=== PATIENT | female | born 1955 | race African-American/Black ===

== ENCOUNTER 2018-06-22 14:33 | Emergency (ER) | payer BC ==
[~2018-06-22] VITALS: Ht 160 cm; Wt 86.2 kg
[2018-06-22 14:58] LABS: URINE BILIRUBIN NEGATIVE (Negative); URINE BLOOD TRACE (Negative); URINE CLARITY CLEAR; URINE COLOR YELLOW; URINE GLUCOSE-RANDOM* 3+ (Negative); URINE KETONES NEGATIVE (Negative); URINE LEUKOCYTES-REFLEX TRACE (Negative); URINE PROTEIN (DIPSTICK) NEGATIVE (Negative); URINE SPECIFIC GRAVITY <= 1.005 (1.005-1.035); URINE UROBILINOGEN 0.2 E.U./dl (0.2-1.0)
[2018-06-22 15:09] LABS: URINE NITRITE-REFLEX POSITIVE (Negative)
[2018-06-22 15:10] LABS: CASTS None Seen /LPF (None Seen); CRYSTALS None Seen /LPF (None Seen); SQUAMOUS 4-10 Moderate /LPF (0-3); URINE RBC None Seen /HPF (0-2); URINE WBC-REFLEX 6-15 Few /HPF (0-5)
[2018-06-22] MEDS ORDERED: KEFLEX500 M1 PO (15:53)
[2018-06-22 17:20] VITALS: BP 140/75
== END 2018-06-22 17:00 | disposition home or self-care (01) ==
LOC: ER 14:33
PROVIDERS: Emergency Medicine
DX: N39.0 Urinary tract infection, site not specified (principal)

== ENCOUNTER 2018-06-23 23:57 | Inpatient (IN) | payer OTHER, BC ==
[~2018-06-23] VITALS: Ht 160 cm; Wt 86.2 kg
[~2018-06-23 23:57] MED LIST: KEFLEX500 M1 PO
[2018-06-24 00:13] VITALS: BP 170/83
[2018-06-24 00:20] LABS: URINE BILIRUBIN NEGATIVE (Negative); URINE BLOOD 1+ (Negative); URINE CLARITY CLEAR; URINE COLOR YELLOW; URINE GLUCOSE-RANDOM* 3+ (Negative); URINE KETONES 1+ (Negative); URINE LEUKOCYTES-REFLEX 2+ (Negative); URINE NITRITE-REFLEX NEGATIVE (Negative); URINE PROTEIN (DIPSTICK) 1+ (Negative); URINE SPECIFIC GRAVITY 1.015 (1.005-1.035); URINE UROBILINOGEN 0.2 E.U./dl (0.2-1.0)
[2018-06-24 00:24] LABS: ABSOLUTE NEUTROPHILS 8.4 thou/uL (1.4-8.2); BASOPHILS 0.4 % (0.0-2.0); EOSINOPHILS 0.1 % (0.0-3.0); HEMATOCRIT 37.3 % (37.0-47.0); HEMOGLOBIN 12.9 gm/dL (12.0-15.0); LYMPHOCYTES 16.9 % (24.0-44.0); MCH 30.3 pg (26.0-34.0); MCHC 34.5 g/dL (28.0-37.0); MCV 87.6 fL (80.0-100.0); MONOCYTES 3.3 % (1.0-8.0); PLATELET COUNT 257 thou/uL (150-400); POLYS 79.3 % (36.0-66.0); RBC 4.26 mil/uL (4.20-5.00); RDW 14.7 % (10.5-14.5); WBC 10.6 thou/uL (4.0-11.0)
[2018-06-24 00:30] LABS: ANION GAP 19 mmol/L (7-16); BUN 16 mg/dL (7-18); CALCIUM 9.2 mg/dL (8.5-10.1); CHLORIDE 92 mmol/L (98-107); CO2 20 mmol/L (21-32); CREATININE 1.7 mg/dL (0.6-1.0); GLUCOSE 484 mg/dL (74-106); POTASSIUM 3.4 mmol/L (3.5-5.1); SODIUM 131 mmol/L (136-145)
[2018-06-24 00:30] LABS: CASTS None Seen /LPF (None Seen); CRYSTALS None Seen /LPF (None Seen); MUCUS 0-3 Light strn/LPF (None Seen); SQUAMOUS 4-10 Moderate /LPF (0-3); URINE RBC 3-10 Few /HPF (0-2); URINE WBC-REFLEX 6-15 Few /HPF (0-5); YEAST-REFLEX Present (None Seen)
[2018-06-24 00:39] LABS: ALBUMIN 2.9 g/dL (3.4-5.0); DIRECT BILIRUBIN 0.1 mg/dL (<0.1-0.3); SGOT 23 U/L (15-37); SGPT 27 U/L (30-65); TOTAL BILIRUBIN 0.4 mg/dL (<0.1-1.0); TOTAL PROTEIN 8.7 g/dL (6.4-8.2); TROPONIN-I <0.06 ng/mL (<0.06)
[2018-06-24 02:25] VITALS: BP 113/54
[2018-06-24 02:28] VITALS: BP 110/64
--- NOTE | 2018-06-24 04:04 | NUR ---
PT WAS ADMITTED TO THE UNIT AT APPROX 0235 FORM THE ER IN THE COMPANY OF HER SPOUS.ADMISSION ASSESSMENT,HX AND EDUCATION COMPLETED.PT HAD LOW GRADE TEMP ON ADMIT,MANAGED WITH PO MED.HR STILL IN LOW 100'S,PT STABLE.DENIED PAIN ON ADMIT.PT RESTING ON HER BED AT THIS TIME.CALL LIGHT WITHIN REACH.
[2018-06-24 05:46] LABS: HEMATOCRIT 33.9 % (37.0-47.0); HEMOGLOBIN 11.1 gm/dL (12.0-15.0); MCH 28.9 pg (26.0-34.0); MCHC 32.8 g/dL (28.0-37.0); MCV 88.1 fL (80.0-100.0); RBC 3.84 mil/uL (4.20-5.00); WBC 13.5 thou/uL (4.0-11.0)
[2018-06-24 06:01] LABS: CREATININE 1.4 mg/dL (0.6-1.0); POTASSIUM 3.4 mmol/L (3.5-5.1)
[2018-06-24 08:11] VITALS: BP 109/61
--- NOTE | 2018-06-24 08:25 | NUR ---
ASSESMENT COMPLETED. TACHY OTHERWISE VSS. A/O. DENIES PAIN. NO NOTED SOA AT REST. DENIES NV. LACTATE 1.5 THIS AM. MONITORING LABS. BLOOD SUGAR 311 THIS AM WILL MEDICATE ORDERED. PT RESTING IN BED AT THIS TIME. WILL CONT. TO MONITOR.
--- NOTE | 2018-06-24 08:41 | EKG ---
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: [place] : 1955 Requested By: Stone Simpson Order Number: [id number] MD: Yosi Mendez Measurements Intervals [place] Rate: 150 P: 110 OR: 165 QRS: -22 QRSD: 69 T: -49 QT: 277 QTc: 438 Interpretive Statements Sinus tachycardia Poor R wave progression Nonspecific T wave abnormality No previous ECG available for comparison Electronically Signed On 06-24-2018 8:40:46 GATE WATCHMAN by Yosi Mendez [email or web address] ��������������������������������������������� <ELECTRONICALLY SIGNED> ���������������������������������������� By: Yosi Mendez MD, [facility] ��������������������������������������������� 06/24/18 0840 0011 0011 Yosi Mendez MD, FACC /EPI
--- NOTE | 2018-06-24 14:04 | NUR ---
ASSESSMENT-PT LIVES IN A HOUSE WITH HER . PT INDEPENDENT OF ADLS AND AMBULATION. PT WAS DRIVING PRIOR TO ADMISSION. SPOUSE ABLE TO ASSIST AT HOME. PT DENIES KNOWING PREVIOUSLY THAT BLOOD SUGAR HAS BEEN ELEVATED. AWAITING HGBAIC RESULTS. FOLLOWING TO ASSIST WITH DC PLANNING.
[2018-06-24 19:45] VITALS: BP 131/74
[2018-06-25 00:07] LABS: GLYCOHEMOGLOBIN (HGB A1C) 14.8 % (4.8-5.6)
--- NOTE | 2018-06-25 02:26 | NUR ---
PT AFEBRILE,HR IN THE 90'S.NO SOB NOTED SO FAR.BG STILL ELEVATED AT HS,MANAGED WITH SS INSULIN.IVF STILL INFUSING.PT UP ADLIB TO THE BR,STEADY GAIT.EDUCATION GIVEN FOR DM,PT VOICED UNDERSTANDING STATED THAT SHE WILL NEED ASSISTANCE WITH SUPPLIES.PT RESTING ON HER BED AT THIS TIME.CALL LIGHT WITHIN REACH.
[2018-06-25 04:20] VITALS: BP 146/60
[2018-06-25 07:40] VITALS: BP 130/66
[2018-06-25 10:38] LABS: ABSOLUTE NEUTROPHILS 9.9 thou/uL (1.4-8.2); BASOPHILS 0.5 % (0.0-2.0); EOSINOPHILS 0.1 % (0.0-3.0); HEMATOCRIT 33.3 % (37.0-47.0); LYMPHOCYTES 16.3 % (24.0-44.0); MCH 29.4 pg (26.0-34.0); MCHC 33.1 g/dL (28.0-37.0); MCV 88.9 fL (80.0-100.0); MONOCYTES 6.3 % (1.0-8.0); PLATELET COUNT 261 thou/uL (150-400); POLYS 76.8 % (36.0-66.0); RBC 3.74 mil/uL (4.20-5.00); RDW 15.3 % (10.5-14.5); WBC 12.9 thou/uL (4.0-11.0)
[2018-06-25 10:46] LABS: CREATININE 1.1 mg/dL (0.6-1.0); POTASSIUM 3.5 mmol/L (3.5-5.1)
--- NOTE | 2018-06-25 12:30 | NUR ---
Assumed pt care at 7am.Pt in and out of bed independently.Dangle at bs for breakfast.Good appetite noted.Received call from [facility] [place] supervisor that pt will be transfer to sr suites this afternoon.Pt notified and report off to Daksha lugo.Will continue to monitor.
--- NOTE | 2018-06-25 12:36 | NUR ---
REPORT GIVEN BY NURSE MUNIZ. PATIENT TRANSFERRED FROM ROOM #431 TO #225. SHE HAS BEEN ORIENTED TO ROOM AND SETTLED. PATIENT HAS CALL LIGHT WITHIN REACH.
[2018-06-25 12:41] VITALS: BP 130/73
[2018-06-25 19:18] VITALS: BP 146/71
[2018-06-25] MEDS ORDERED: SINGULAIR 10 MG10 M1 PO (22:58)
[2018-06-25] MEDS ORDERED: CLARITIN10 MG PO (22:59)
--- NOTE | 2018-06-26 05:37 | NUR ---
ASSUMED CARE OF PATIENT AT 1899. VSS. ASSESSMENT COMPLETED AT 2049 AND IS DOCUMENTED. HS FSBS 248, 4U COVERAGE INSULIN GIVEN. PT VOICED CONCERN ABOUT INCREASING CONGESTION D/T SEASONAL ALLERGIES. PT STATED THAT SHE TAKES SINGULAR 10MG ONCE DAILY AND CLARITIN 10MG ONCE DAILY AT HOME. TATUM ALDANA ORDERED BOTH MEDICATIONS TO RESUME TODAY AT 0900. PT HAD LOW-GRADE FEVER OF 99.9, TYLENOL GIVEN WITH LITTLE EFFECT. RIGHT AC PIV PATENT WITH NORMAL SALINE RUNNING AT 125 ML/HR. IV ABT INFUSED WITHOUT COMPLICATION. PT CURRENTLY SLEEPING SOUNDLY IN BED IN NO ACUTE DISTRESS. CALL LIGHT WITHIN REACH. BED LOCKED AND IN LOWEST POSITION. WCTM.
--- NOTE | 2018-06-26 06:01 | NUR ---
THIS NURSE AGREES WITH ASSESSMENT AND NOTES ON THIS PATIENT FROM LAW OFFICE ASSISTANT.
[2018-06-26 07:07] LABS: HEMATOCRIT 31.9 % (37.0-47.0); HEMOGLOBIN 10.8 gm/dL (12.0-15.0); MCH 29.9 pg (26.0-34.0); MCHC 33.7 g/dL (28.0-37.0); MCV 88.5 fL (80.0-100.0); RBC 3.6 mil/uL (4.20-5.00); RDW 15.1 % (10.5-14.5); WBC 10.6 thou/uL (4.0-11.0)
[2018-06-26 07:19] LABS: CALCIUM 8.8 mg/dL (8.5-10.1); CREATININE 0.9 mg/dL (0.6-1.0); POTASSIUM 3.3 mmol/L (3.5-5.1)
[2018-06-26 08:10] VITALS: BP 137/83
--- NOTE | 2018-06-26 08:13 | NUR ---
ASSUMED PT CARE AT 0700. PT AWAKE, ALERT/ORIENTED X4. DENIES PAIN. REPORTS SOME FREQUENCY, URGENCY, AND DRIBBLING WITH URINATION. DENIES PAINFUL URINATION. ASSESSMENT COMPLETED AND IS CHARTED. VSS. IV INFUSING NS AND IS ASYMPTOMATIC. PT IS AFEBRILE. NO NEW CONCERNS. WILL CONTINUE CURRENT CARE.
--- NOTE | 2018-06-26 13:14 | NUR ---
PT DOING WELL THIS SHIFT. NO C/O PAIN. PT UP AND AROUND AD CARLITA IN ROOM. IVF DISCONTINUED. WILL CONTINUE WITH CURRENT CARE.
[2018-06-26 19:46] VITALS: BP 143/87
--- NOTE | 2018-06-27 04:40 | NUR ---
ASSUMED CARE OF PATIENT AT 1900. VSS. ASSESSMENT COMPLETED AT 2129 AND IS DOCUMENTED. NEW ORDER FOR METFORMIN GIVEN. PT AND SPOUSE EDUCATED ABOUT ADVERSE EFFECTS, AND VOICED UNDERSTANDING. HS FSBS: 310. 9 UNITS OF COVERAGE INSULIN GIVEN PER JUN. ABT GIVEN VIA RIGHT AC PIV ORDERED WITHOUT COMPLICATION. PT CURRENTLY SLEEPING SOUNDLY IN BED IN NO ACUTE DISTRESS. CALL LIGHT WITHIN REACH. BED LOCKED AND IN LOWEST POSITION. WCTM.
--- NOTE | 2018-06-27 05:11 | NUR ---
THIS NURSE AGREES WITH ASSESSMENT AND NOTES ON THIS PATIENT FROM CHANGE OVER.
[2018-06-27 07:01] LABS: HEMATOCRIT 31.6 % (37.0-47.0); HEMOGLOBIN 10.8 gm/dL (12.0-15.0); MCH 29.9 pg (26.0-34.0); MCV 87.8 fL (80.0-100.0); RBC 3.6 mil/uL (4.20-5.00); RDW 15.2 % (10.5-14.5); WBC 10.1 thou/uL (4.0-11.0)
[2018-06-27 07:11] LABS: CALCIUM 9.6 mg/dL (8.5-10.1); CREATININE 0.9 mg/dL (0.6-1.0); POTASSIUM 3.3 mmol/L (3.5-5.1)
[2018-06-27 07:45] VITALS: BP 155/95
--- NOTE | 2018-06-27 07:47 | NUR ---
ASSUMED PT CARE AT 0700. ASSESSMENT COMPLETED AND IS CHARTED. PT AWAKE, ALERT/ORIENTED X4. DENIES PAIN. REPORTS FREQUENCY/URGENCY WITH URINATION HAS IMPROVED. REPORTS UPSET STOMACH LAST NIGHT BUT HAS RESOLVED. NO NEW CONCERNS AT THIS TIME. WILL CONTINUE WITH CURRENT CARE.
--- NOTE | 2018-06-27 18:16 | NUR ---
PT HAS DONE WELL THIS SHIFT. NO C/O PAIN. REMAINED AFEBRILE. BLOOD SUGARS CONTINUE TO RUN HIGH. OTHERWISE NO NEW CONCERNS. WILL CONTINUE CURRENT CARE.
[2018-06-27 18:35] VITALS: BP 144/76
--- NOTE | 2018-06-28 04:35 | NUR ---
Patient remains A&Ox4; Swallows meds whole w/o difficulty. Remains cont. B&B; Ambulates independently w/ steady gait. Blood sugars WNL. Remains on IVABT/Sepsis; no adverse reactions noted. SL noted/intact to RAC;infused ABT/flushed w/o difficulty. Patient has no c/o pain or discomfort, at this time. No s/s of acute distress noted. Patient in bed asleep, w/ call light/desired belongings within reach. Po fluids encouraged. Will continue to monitor.
--- NOTE | 2018-06-28 05:14 | NUR ---
THIS NURSE AREES WITH ASSESSMENT AND NOTES BY VEGETABLE CANNER. RESTING QUIETLY. WILL MONITOR.
[2018-06-28 07:57] VITALS: BP 156/83
--- NOTE | 2018-06-28 10:20 | NUR ---
ASSUMED CARE OF PATIENT THIS MORNING. PATIENT IS A&OX4. SHE IS UP AD CARLITA. PATIENT'S WAS TACHYCARDIC AND HER TEMPERATURE WAS ELEVATED THIS MORNING. TYLENOL WAS GIVEN FOR THE FEVER OF 101.6 AND WHEN RE-CHECKED IT WAS 98.5. PATIENT IS A NEWLY DIAGNOSED DIABETIC AND HAS RECEIVED DIABETIC EDUCATION. HER BLOOD SUGAR WAS ELEVATED THIS MORNING IT WAS 210, RECEIVED 4 UNITS OF INSULIN THIS MORNING, METFORM, AND TRADJENTA. RIGHT AC IV IS SALINE LOCKED. PATIENT WILL POSSIBLY BE DISCHARGED HOME THIS AFTERNOON. SHE IS CURRENTLY SITTING IN BED WITH CALL LIGHT WITHIN REACH. SHE CALLS OUT APPROPRIATELY FOR ASSISTANCE.
--- NOTE | 2018-06-28 14:28 | NUR ---
CARE TEAM INDICATED THAT PT WILL LIKELY BE MEDICALLY STABLE TO DISCARGE HOME THIS DAY. CM MET WITH AT BEDSIDE AND INDICATED THE ABOVE SHE IS AWARE AND AGREEABLE. CM INDICATED THAT PT WOULD NEED SUPPLIES O TEST BE BS UPON DC. PT INDICATED THAT SHE WAS INTERESTED IN A SYSTEM THAT YOU ADHERE TO YOUR SKIN THAT TAKES YOUR BS. CM INDICATED THAT PT WOULD LIKELY NEED TO GO THROUGH HER PCP FOR AN ORDER FOR THAT. CM TO NOTIFY PT THAT SUPPLIES CAN BE PURCHADED AT [facility] WITHOUT SCRIPT. NO OTHER CM INTERVENTION INDICATED AT THIS TIME. CASE CLOSED.
[2018-06-28] MEDS ORDERED: KEFLEX500 M1 PO (16:13)
[2018-06-28] MEDS ORDERED: TRADJENTA5 MG PO (16:13)
[2018-06-28] MEDS ORDERED: GLUCOPHAGE1000 MG PO (16:15)
[2018-06-28 16:44] VITALS: BP 156/83
--- NOTE | 2018-06-28 17:53 | NUR ---
PATIENT DISCHARGED HOME WITH SELF CARE. DISCHARGE INSTRUCTIONS REVIEWED WITH PATIENT AND PATIENT SIGNED IN AGREEMENT WITH DISCHARGE. PATIENT'S NEW MEDICATIONS WERE REVIEWED WITH PATIENT AND PATIENT SIGNED THE MEDICATION PAGE. IV REMOVED FROM PATIENT AND PATIENT LEFT WITH .
== END 2018-06-28 17:45 | disposition home or self-care (01) | DRG 871 ==
LOC: ER 23:57 → SICU 06-24 01:07 → EROBS 06-24 01:07 → 4E 06-24 01:07 → ENTRNSPT 06-25 11:56 → EDTRNSPTSTS 06-25 12:10 → SICU 06-25 12:35
PROVIDERS: Emergency Medicine; Nurse Practitioner Acute Care; ADMIT Hospitalist
DX: A41.9 Sepsis, unspecified organism (principal); N17.0 Acute kidney failure with tubular necrosis; N12 Tubulo-interstitial nephritis, not specified as acute or chronic; E86.0 Dehydration; E11.9 Type 2 diabetes mellitus without complications; Z79.84 Long term (current) use of oral hypoglycemic drugs; Z83.3 Family history of diabetes mellitus
CPT/HCPCS: 10084; 15002